=== PATIENT | male | born 1945 | race Caucasian/White ===

== ENCOUNTER 2021-05-20 10:44 | Outpatient (CLI) | payer MEDICARE, BC, SELFPAY ==
[2021-05-20 11:04] VITALS: BP 124/80; PULSE 79; RESP 16; TEMP 36.5; O2SAT 95; BMI 27.8
[2021-05-20 11:40] VITALS: BP 102/69; PULSE 72; RESP 18; O2SAT 95
[2021-05-20 12:45] VITALS: BP 110/79; PULSE 71; RESP 16; TEMP 36.4; O2SAT 97
--- NOTE | 2021-05-27 18:37 | PC.SOCIAL ---
101, 9565 antibody infusion follow up call: symptoms prior to infusion: vomiting, cough patient reports symptoms are about the same, no fever, no vomiting, continues to cough.
== END 2021-05-20 10:45 | disposition home or self-care (01) ==
LOC: OPS 10:48
PROVIDERS: PCP Nurse Practitioner Family; Visit Provider Nurse Practitioner Family
DX: U07.1 COVID-19 (principal); R05 Cough; R09.81 Nasal congestion; J02.9 Acute pharyngitis, unspecified; R51.9 Headache, unspecified; E11.9 Type 2 diabetes mellitus without complications; I10 Essential (primary) hypertension
CPT/HCPCS: 96365